=== PATIENT | male | born 1995 | race Caucasian/White ===

== ENCOUNTER → 2018-07-26 | Outpatient (CLI) | payer OTHER | LOC: BMCIMAGING 17:48 | PROVIDERS: ATTEND Family Medicine | DX: S52.501A Unspecified fracture of the lower end of right radius, initial encounter for closed fracture (principal) ==

== ENCOUNTER → 2018-07-31 | Outpatient (CLI) | payer OTHER | LOC: BMCIMAGING 10:04 | PROVIDERS: ATTEND Orthopaedic Surgery Hand Surgery | DX: S59.291D Other physeal fracture of lower end of radius, right arm, subsequent encounter for fracture with routine healing (principal) ==

== ENCOUNTER → 2018-08-16 | Outpatient (CLI) | payer OTHER | END | disposition home or self-care (01) | LOC: BMCIMAGING 10:20 | PROVIDERS: ATTEND Orthopaedic Surgery Hand Surgery | DX: S52.591D Other fractures of lower end of right radius, subsequent encounter for closed fracture with routine healing (principal) ==

== ENCOUNTER → 2018-08-30 | Outpatient (CLI) | payer OTHER | LOC: BMCIMAGING 10:51 | PROVIDERS: ATTEND Orthopaedic Surgery Hand Surgery | DX: S59.291D Other physeal fracture of lower end of radius, right arm, subsequent encounter for fracture with routine healing (principal) ==

== ENCOUNTER → 2018-09-27 | Outpatient (CLI) | payer OTHER | LOC: BMCIMAGING 14:23 | PROVIDERS: ATTEND Orthopaedic Surgery Hand Surgery | DX: S52.551D Other extraarticular fracture of lower end of right radius, subsequent encounter for closed fracture with routine healing (principal) ==